=== PATIENT | male | born 1975 | race Caucasian/White ===

== ENCOUNTER → 2020-06-09 | Outpatient (CLI) | payer OTHER ==
[~2020-06-09] MED LIST: CYCLOBENZAPRINE10 MG PO; IBUPROFEN600 MG PO
== END ==
LOC: LAB 11:49
DX: Z02.83 Encounter for blood-alcohol and blood-drug test (principal)
CPT/HCPCS: 36415

== ENCOUNTER 2021-03-18 09:58 | Inpatient (IN) | payer OTHER ==
[~2021-03-18] VITALS: Ht 172.7 cm; Wt 94.0 kg
[2021-03-18 10:26] LABS: HEMOGLOBIN 15.9 gm/dl (14.0-17.5); RED BLOOD COUNT 4.99 M/UL (4.20-5.50); WHITE BLOOD COUNT 8.7 K/UL (4.5-11.0)
[2021-03-18 11:01] LABS: BUN/CREATININE RATIO 28 (0-10)
[2021-03-19 04:17] LABS: HEMOGLOBIN 14.8 gm/dl (14.0-17.5); RED BLOOD COUNT 4.71 M/UL (4.20-5.50)
[2021-03-19 04:37] LABS: BUN/CREATININE RATIO 34 (0-10)
[2021-03-20 05:42] LABS: HEMOGLOBIN 14.4 gm/dl (14.0-17.5); RED BLOOD COUNT 4.71 M/UL (4.20-5.50)
[2021-03-20 05:43] LABS: WHITE BLOOD COUNT 15.4 K/UL (4.5-11.0)
[2021-03-20 06:16] LABS: BUN/CREATININE RATIO 31 (0-10)
[2021-03-21 05:56] LABS: HEMOGLOBIN 13.5 gm/dl (14.0-17.5); RED BLOOD COUNT 4.43 M/UL (4.20-5.50); WHITE BLOOD COUNT 15.3 K/UL (4.5-11.0)
[2021-03-21 06:15] LABS: BUN/CREATININE RATIO 31 (0-10)
[2021-03-22 05:44] LABS: HEMOGLOBIN 13.3 gm/dl (14.0-17.5); RED BLOOD COUNT 4.26 M/UL (4.20-5.50)
[2021-03-22 05:50] LABS: BUN/CREATININE RATIO 40 (0-10)
[2021-03-22 05:54] LABS: WHITE BLOOD COUNT 9.4 K/UL (4.5-11.0)
[2021-03-23 09:18] LABS: HEMOGLOBIN 13.8 gm/dl (14.0-17.5); RED BLOOD COUNT 4.44 M/UL (4.20-5.50); WHITE BLOOD COUNT 13.3 K/UL (4.5-11.0)
[2021-03-23 09:35] LABS: BUN/CREATININE RATIO 53 (0-10)
[2021-03-23 16:19] LABS: BUN/CREATININE RATIO 53 (0-10)
[2021-03-24 06:03] LABS: BUN/CREATININE RATIO 52 (0-10)
[2021-03-24 07:53] LABS: HEMOGLOBIN 13.9 gm/dl (14.0-17.5); RED BLOOD COUNT 4.56 M/UL (4.20-5.50); WHITE BLOOD COUNT 13.9 K/UL (4.5-11.0)
[2021-03-25 05:19] LABS: HEMOGLOBIN 14.8 gm/dl (14.0-17.5); RED BLOOD COUNT 4.7 M/UL (4.20-5.50); WHITE BLOOD COUNT 13.9 K/UL (4.5-11.0)
[2021-03-25 05:42] LABS: BUN/CREATININE RATIO 51 (0-10)
[2021-03-26 05:17] LABS: HEMOGLOBIN 13.9 gm/dl (14.0-17.5); RED BLOOD COUNT 4.43 M/UL (4.20-5.50)
[2021-03-26 05:18] LABS: WHITE BLOOD COUNT 19.6 K/UL (4.5-11.0)
[2021-03-26 05:59] LABS: BUN/CREATININE RATIO 49 (0-10)
[2021-03-27 05:00] LABS: HEMOGLOBIN 12.7 gm/dl (14.0-17.5); RED BLOOD COUNT 4.09 M/UL (4.20-5.50); WHITE BLOOD COUNT 20.8 K/UL (4.5-11.0)
[2021-03-27 05:47] LABS: BUN/CREATININE RATIO 60 (0-10)
[2021-03-28 06:14] LABS: HEMOGLOBIN 12.1 gm/dl (14.0-17.5); RED BLOOD COUNT 3.96 M/UL (4.20-5.50); WHITE BLOOD COUNT 17.3 K/UL (4.5-11.0)
[2021-03-28 06:26] LABS: BUN/CREATININE RATIO 49 (0-10)
[2021-03-29 08:26] LABS: WHITE BLOOD COUNT 17.5 K/UL (4.5-11.0)
[2021-03-29 08:39] LABS: RED BLOOD COUNT 4.56 M/UL (4.20-5.50)
[2021-03-29 08:40] LABS: HEMOGLOBIN 14.4 gm/dl (14.0-17.5)
[2021-03-29 09:13] LABS: BUN/CREATININE RATIO 64 (0-10)
[2021-03-30 04:50] LABS: HEMOGLOBIN 12.7 gm/dl (14.0-17.5); RED BLOOD COUNT 4.08 M/UL (4.20-5.50); WHITE BLOOD COUNT 9.5 K/UL (4.5-11.0)
[2021-03-30 05:11] LABS: BUN/CREATININE RATIO 54 (0-10)
[2021-03-31 02:05] LABS: HEMOGLOBIN 13.8 gm/dl (14.0-17.5)
[2021-03-31 02:07] LABS: RED BLOOD COUNT 4.53 M/UL (4.20-5.50)
[2021-03-31 02:31] LABS: BUN/CREATININE RATIO 38 (0-10)
[2021-04-01 04:47] LABS: HEMOGLOBIN 13.8 gm/dl (14.0-17.5); RED BLOOD COUNT 4.34 M/UL (4.20-5.50); WHITE BLOOD COUNT 9.3 K/UL (4.5-11.0)
[2021-04-01 05:22] LABS: BUN/CREATININE RATIO 33 (0-10)
[2021-04-02 05:12] LABS: HEMOGLOBIN 13.6 gm/dl (14.0-17.5); RED BLOOD COUNT 4.33 M/UL (4.20-5.50)
[2021-04-02 05:15] LABS: WHITE BLOOD COUNT 6.8 K/UL (4.5-11.0)
[2021-04-02 05:32] LABS: BUN/CREATININE RATIO 31 (0-10)
[2021-04-03 04:28] LABS: HEMOGLOBIN 16.1 gm/dl (14.0-17.5); RED BLOOD COUNT 5.03 M/UL (4.20-5.50); WHITE BLOOD COUNT 8.7 K/UL (4.5-11.0)
[2021-04-03 05:37] LABS: BUN/CREATININE RATIO 23 (0-10)
[2021-04-04 06:11] LABS: WHITE BLOOD COUNT 8.7 K/UL (4.5-11.0)
[2021-04-04 06:24] LABS: HEMOGLOBIN 14.1 gm/dl (14.0-17.5); RED BLOOD COUNT 4.49 M/UL (4.20-5.50)
[2021-04-04 06:28] LABS: BUN/CREATININE RATIO 24 (0-10)
--- NOTE | 2021-04-04 10:09 | NUR ---
PT OXYGEN REMOVED AND ROOM AIR SAT WAS 88% NOTED CALLED PER TELE ALSO FINGER PULSE OX ON PT SEEN
[2021-04-04] MEDS ORDERED: ASPIRIN EC81 MG PO (15:51)
[2021-04-04] MEDS ORDERED: PROVENTIL HFA6.7 GM INH (15:51)
[2021-04-04] MEDS ORDERED: LOPRESSOR 25 MG25 MG PO (15:51)
[2021-04-04] MEDS ORDERED: THERAGRAN M TAB1 EA PO (15:51)
== END 2021-04-04 16:54 | disposition home or self-care (01) | DRG 207 ==
LOC: ER1 09:58 → M/S 11:40 → CCU 11:40 → CDU 11:40 → PROG CARE 14:12 → CCU 03-19 11:56 → M/S 04-02 13:59
PROVIDERS: Internal Medicine; Internal Medicine Critical Care Medicine; Physician Assistant; ADMIT Internal Medicine
PROC: XW033E5 Introduction of Remdesivir Anti-infective into Peripheral Vein, Percutaneous Approach, New Technology Group 5 (ICD-10-PCS; 2021-03-18)
PROC: XW033H5 Introduction of Tocilizumab into Peripheral Vein, Percutaneous Approach, New Technology Group 5 (ICD-10-PCS; 2021-03-18)
PROC: 5A0935A Assistance with Respiratory Ventilation, Less than 24 Consecutive Hours, High Flow/Velocity Cannula (ICD-10-PCS; 2021-03-18)
PROC: 3E033XZ Introduction of Vasopressor into Peripheral Vein, Percutaneous Approach (ICD-10-PCS; principal; 2021-03-19)
PROC: 5A1955Z Respiratory Ventilation, Greater than 96 Consecutive Hours (ICD-10-PCS; 2021-03-19)
PROC: 3E0333Z Introduction of Anti-inflammatory into Peripheral Vein, Percutaneous Approach (ICD-10-PCS; 2021-03-19)
PROC: 8E0ZXY6 Isolation (ICD-10-PCS; 2021-03-19)
PROC: 0BH17EZ Insertion of Endotracheal Airway into Trachea, Via Natural or Artificial Opening (ICD-10-PCS; 2021-03-19)
PROC: 02HV33Z Insertion of Infusion Device into Superior Vena Cava, Percutaneous Approach (ICD-10-PCS; 2021-03-19)
PROC: B548ZZA Ultrasonography of Superior Vena Cava, Guidance (ICD-10-PCS; 2021-03-19)
PROC: 5A09357 Assistance with Respiratory Ventilation, Less than 24 Consecutive Hours, Continuous Positive Airway Pressure (ICD-10-PCS; 2021-03-19)
DX: U07.1 COVID-19 (principal); J15.212 Pneumonia due to Methicillin resistant Staphylococcus aureus; A41.89 Other specified sepsis; R65.21 Severe sepsis with septic shock; G93.41 Metabolic encephalopathy; J80 Acute respiratory distress syndrome; J12.82 Pneumonia due to coronavirus disease 2019; R57.0 Cardiogenic shock; E87.3 Alkalosis; E87.1 Hypo-osmolality and hyponatremia; E87.6 Hypokalemia; R45.1 Restlessness and agitation; Z79.82 Long term (current) use of aspirin; Z51.5 Encounter for palliative care
CPT/HCPCS: 36415; 36600; 71045; 80048; 80053; 80076; 82550; 82553; 82803; 83605; 83615; 83735; 83874; 84484; 85025; 85027; 86140; 87040; 87070; 87077; 87186; 87205; 92610; 93005; 94002; 94003; 94640; 94660; 94664; 94760; 96374; 96375; 97116-GP-CQ; 97162; 97165; 97530; 97535; 99284; A6212; C9113; J0330; J0696; J1100; J1650; J2020; J2185; J2250; J2704; J3010; J7030; J7050; U0002